=== PATIENT | male | born 1995 | race Caucasian/White ===

== ENCOUNTER 2018-01-21 23:27 | Emergency (ER) | payer OTHER ==
[2018-01-22 00:13] LABS: ADD MAN DIFF? NO
[2018-01-22 00:15] LABS: BASO # 0.1 x10^3/uL (0.0-0.2); BASO % 1 % (0-3); EOS # 0.2 x10^3/uL (0.0-0.7); EOS % 2 % (0-3); HEMATOCRIT 41.8 % (39.0-53.0); HEMOGLOBIN 14.9 g/dL (13.0-17.5); LYMPH # 2.9 x10^3/uL (1.0-4.8); LYMPH % 29 % (24-48); MEAN CORPUSCULAR HEMOGLOBIN 31 pg (25-35); MEAN CORPUSCULAR HGB CONC 36 g/dL (31-37); MEAN CORPUSCULAR VOLUME 87 fL (79-100); MONO # 1.3 x10^3/uL (0.0-1.1); MONO % 13 % (0-9); NEUT # 5.7 x10^3uL (1.8-7.7); NEUT % 56 % (31-73); PLATELET COUNT 230 x10^3/uL (140-400); RED BLOOD COUNT 4.83 x10^6/uL (4.30-5.70); RED CELL DISTRIBUTION WIDTH 12.7 % (11.5-14.5); WHITE BLOOD COUNT 10.2 x10^3/uL (4.0-11.0)
[2018-01-22 00:34] LABS: ANION GAP 6 (6-14); BLOOD UREA NITROGEN 8 mg/dL (8-26); BUN/CREATININE RATIO 9 (6-20); CARBON DIOXIDE 30 mmol/L (21-32); CHLORIDE 101 mmol/L (98-107); CREATININE 0.9 mg/dL (0.7-1.3); GFR 106.5; GLUCOSE 95 mg/dL (70-99); POTASSIUM 4.1 mmol/L (3.5-5.1); SODIUM 137 mmol/L (136-145)
[2018-01-22 00:40] LABS: ALBUMIN 4.4 g/dL (3.4-5.0); ALK PHOS 87 U/L (46-116); ALT (SGPT) 25 U/L (16-63); AST (SGOT) 28 U/L (15-37); TOTAL BILIRUBIN 1.4 mg/dL (0.2-1.0)
[2018-01-22 00:52] LABS: D-DIMER 0.52 ug/mlFEU (0.00-0.50)
[2018-01-22] MEDS: IOHEXOL 300 MG/ML 100ML VIAL. IV (01:20)
[2018-01-22] MEDS: IV NORMAL SALINE 1000ML BAG 1,000 ML IV (01:23)
[2018-01-22] MEDS: MORPHINE SULFATE 4 MG/ML DISP.SYRIN. IV (01:29)
== END 2018-01-22 02:19 | disposition home or self-care (01) ==
LOC: ER 01-22 02:19
DX: R09.1 Pleurisy (principal); R91.1 Solitary pulmonary nodule
CPT/HCPCS: 36415; 71275; 80053; 85025; 85379; 93005; 96374; 99285-25; J2270; J7030; Q9967

== ENCOUNTER → 2018-02-03 | Day surgery (SDC) | payer OTHER ==
[~2018-02-03] MED LIST: ALBUTEROL SULFATE 2.5 MG/3 ML NEBU.; EPINEPHrine 1 MG/ML VIAL; LIDOCAINE 1% PF 2 ML VIAL. ID; LIDOCAINE 2% PF Vial for OR 5 ML VIAL.; MEPERIDINE PF 25 MG/ML VIAL.; MORPHINE SULFATE 2 MG/ML DISP.SYRIN. IV; ONDANSETRON PF 4 MG/2 ML VIAL. IV; PROCHLORPERAZINE 10 MG/2 ML VIAL. IV; PROPOFOL 20 ML IV; fentaNYL PF VIAL 100 MCG/2 ML VIAL IV
[2018-02-03] MEDS: IV RINGERS,LACTATED 1000ML 1,000 ML IV (12:26)
[2018-02-03] MEDS: ALBUTEROL SULFATE 2.5 MG/3 ML NEBU. IH (12:34)
== END | disposition home or self-care (01) ==
LOC: SURG 11:53
DX: R91.8 Other nonspecific abnormal finding of lung field (principal); Z98.890 Other specified postprocedural states
CPT/HCPCS: 31622; 31624; 31629; 87070; 87205; 88112; 88173; 94640; J0171; J2175; J2704; J7613